=== PATIENT | female | born 1955 | race Caucasian/White ===

== ENCOUNTER 2020-02-10 08:37 | Day surgery (SDC) | payer MEDICARE ==
[~2020-02-10] VITALS: Ht 175.3 cm; Wt 91.2 kg
--- NOTE | 2020-02-10 10:08 | NUR ---
02/10/20 1008 Lizbeth Be COLONOSCOPY INCOMPLETE DUE TO POOR PREP.
== END 2020-02-10 10:37 | disposition home or self-care (01) ==
LOC: ORSCSDS 08:37
PROVIDERS: Internal Medicine Gastroenterology
PROC: 0DJD8ZZ Inspection of Lower Intestinal Tract, Via Natural or Artificial Opening Endoscopic (ICD-10-PCS; principal; 2020-02-10 10:00)
DX: Z12.11 Encounter for screening for malignant neoplasm of colon (principal); E78.5 Hyperlipidemia, unspecified
CPT/HCPCS: J2704; J7120